=== PATIENT | female | born 1965 | race Caucasian/White ===

== ENCOUNTER → 2021-07-17 00:01 | Outpatient (BNVA) | payer OTHER, SELFPAY | PROVIDERS: Visit Provider Nurse Practitioner Family | DX: N39.0 Urinary tract infection, site not specified (principal) | CPT/HCPCS: 81003; 87077; 87086; 87184 ==

== ENCOUNTER → 2023-03-07 15:17 | Outpatient (BNVA) | payer OTHER, SELFPAY | PROVIDERS: Visit Provider Obstetrics & Gynecology | DX: R10.31 Right lower quadrant pain (principal) | CPT/HCPCS: 76830 ==